=== PATIENT | female | born 1990 | race Caucasian/White ===

== ENCOUNTER 2022-08-24 09:23 | Outpatient (CLI) | payer BC | END 2022-08-24 09:24 | disposition home or self-care (01) | LOC: BICRAD 09:23 | PROVIDERS: ATTEND Family Medicine | DX: K59.00 Constipation, unspecified (principal) | CPT/HCPCS: 74019 ==

== ENCOUNTER 2023-05-24 13:56 | Outpatient (CLI) | payer BC | END 2023-05-24 13:57 | disposition home or self-care (01) | LOC: MRI 13:56 | PROVIDERS: ATTEND Family Medicine | DX: M54.16 Radiculopathy, lumbar region (principal) | CPT/HCPCS: 72148 ==

== ENCOUNTER 2023-06-22 12:25 | Outpatient (CLI) | payer BC | END 2023-06-22 12:26 | disposition home or self-care (01) | LOC: RAD 12:25 | PROVIDERS: ATTEND Specialist | DX: R13.10 Dysphagia, unspecified (principal); K22.2 Esophageal obstruction; K22.4 Dyskinesia of esophagus | CPT/HCPCS: 74220 ==

== ENCOUNTER 2024-04-18 12:56 | Outpatient (CLI) | payer BC | END 2024-04-18 12:57 | disposition home or self-care (01) | LOC: BICULT 12:56 | PROVIDERS: ATTEND Family Medicine | DX: R31.9 Hematuria, unspecified (principal); Z96.0 Presence of urogenital implants | CPT/HCPCS: 76770 ==